=== PATIENT | female | born 1935 | race Caucasian/White ===

== ENCOUNTER → 2024-01-30 14:19 | Outpatient (REF) | payer MEDICARE, OTHER, SELFPAY | LOC: WDC 14:19 | PROVIDERS: ATTENDING PHYSICIAN Internal Medicine | DX: Z12.31 Encounter for screening mammogram for malignant neoplasm of breast (principal) | CPT/HCPCS: 77063; 77067 ==

== ENCOUNTER → 2024-06-03 14:04 | Outpatient (REF) | payer MEDICARE, OTHER, SELFPAY ==
[2024-06-03 15:11] LABS: ALT (SGPT) 24 U/L (0-35); AST (SGOT) 34 U/L (14-36); Albumin 4.7 g/dl (3.5-5.0); Alkaline Phosphatase 101 U/L (38-126); Blood Urea Nitrogen 29 mg/dl (7-17); Calcium 9.9 mg/dl (8.4-10.2); Carbon Dioxide 26 mmol/L (22-30); Chloride 101 mmol/L (98-107); Glucose 100 mg/dl (70-99); Potassium 4.6 mmol/L (3.5-5.1); Sodium 140 mmol/L (135-145); Total Bilirubin 0.5 mg/dl (0.2-1.3); Total Protein 7.2 g/dl (6.3-8.2); eGFR > 60.00
[2024-06-03 15:36] LABS: Free T4 1.21 ng/dl (0.78-2.19)
[2024-06-03 16:09] LABS: Vitamin B12 873 pg/ml (239-931)
[2024-06-05 22:49] LABS: Total T3 (Sendout) 71 ng/dL (80-200)
== END ==
LOC: REG 14:04
PROVIDERS: ATTENDING PHYSICIAN Psychiatry & Neurology Neurology; FAMILY PHYSICIAN Internal Medicine
DX: R26.0 Ataxic gait (principal); R42 Dizziness and giddiness; E03.8 Other specified hypothyroidism
CPT/HCPCS: 36415; 80053; 82607; 83921; 84439; 84443; 84480

== ENCOUNTER → 2024-06-12 12:53 | Outpatient (REF) | payer MEDICARE, OTHER, SELFPAY | LOC: RAD 12:53 | PROVIDERS: ATTENDING PHYSICIAN Internal Medicine; FAMILY PHYSICIAN Internal Medicine | DX: I73.9 Peripheral vascular disease, unspecified (principal) | CPT/HCPCS: 93922; 93925 ==

== ENCOUNTER → 2024-06-14 10:41 | Outpatient (REF) | payer MEDICARE, OTHER, SELFPAY | LOC: RAD 10:41 | PROVIDERS: ATTENDING PHYSICIAN Psychiatry & Neurology Neurology; FAMILY PHYSICIAN Internal Medicine | DX: R26.0 Ataxic gait (principal); R42 Dizziness and giddiness | CPT/HCPCS: 70496; 70498; 72125; Q9967 ==

== ENCOUNTER → 2024-11-19 09:54 | Outpatient (REF) | payer MEDICARE, OTHER, SELFPAY | LOC: EMG 09:54 | PROVIDERS: ATTENDING PHYSICIAN Internal Medicine | DX: M79.604 Pain in right leg (principal); M79.605 Pain in left leg; G62.9 Polyneuropathy, unspecified; R20.0 Anesthesia of skin | CPT/HCPCS: 95886; 95911 ==

== ENCOUNTER → 2025-04-02 14:38 | Outpatient (REF) | payer MEDICARE, OTHER, SELFPAY | LOC: RCS 14:38 | PROVIDERS: ATTENDING PHYSICIAN Internal Medicine; FAMILY PHYSICIAN Internal Medicine | DX: I42.2 Other hypertrophic cardiomyopathy (principal) | CPT/HCPCS: 93306 ==

== ENCOUNTER → 2025-05-05 11:05 | Outpatient (REF) | payer MEDICARE, OTHER, SELFPAY | LOC: RAD 11:05 | PROVIDERS: ATTENDING PHYSICIAN Internal Medicine | DX: Z00.00 Encounter for general adult medical examination without abnormal findings (principal); M81.0 Age-related osteoporosis without current pathological fracture; Z12.31 Encounter for screening mammogram for malignant neoplasm of breast | CPT/HCPCS: 77063; 77067; 77080 ==

== ENCOUNTER → 2025-06-09 11:58 | Outpatient (REF) | payer MEDICARE, OTHER, SELFPAY ==
[2025-06-09 12:52] LABS: ALT (SGPT) 17 U/L (0-35); AST (SGOT) 29 U/L (14-36); Albumin 4.4 g/dl (3.5-5.0); Alkaline Phosphatase 70 U/L (38-126); Blood Urea Nitrogen 20 mg/dl (7-17); Calcium 9.2 mg/dl (8.4-10.2); Carbon Dioxide 29 mmol/L (22-30); Chloride 103 mmol/L (98-107); Glucose 97 mg/dl (70-99); Potassium 4.9 mmol/L (3.5-5.1); Sodium 136 mmol/L (135-145); Total Protein 7.1 g/dl (6.3-8.2); eGFR > 60.00
== END ==
LOC: REG 11:58
PROVIDERS: ATTENDING PHYSICIAN Psychiatry & Neurology Neurology; FAMILY PHYSICIAN Internal Medicine
DX: I67.1 Cerebral aneurysm, nonruptured (principal)
CPT/HCPCS: 36415; 80053

== ENCOUNTER → 2025-06-11 13:52 | Outpatient (REF) | payer MEDICARE, OTHER, SELFPAY | LOC: RAD 13:52 | PROVIDERS: ATTENDING PHYSICIAN Psychiatry & Neurology Neurology; FAMILY PHYSICIAN Internal Medicine | DX: I67.1 Cerebral aneurysm, nonruptured (principal) | CPT/HCPCS: 70496; 70498; Q9967 ==